=== PATIENT | male | born 1940 | race Caucasian/White ===

== ENCOUNTER 2018-06-25 17:03 | Emergency (ER) | payer SELFPAY ==
[~2018-06-25] VITALS: Ht 188 cm; Wt 90.0 kg
[~2018-06-25 17:03] MED LIST: SODIUM BICARB 8.4%, 50ML SYRINGE ONE
[2018-06-25] MEDS ORDERED: LIDOCAINE 2% 100MG/5ML SYRINGE ONE (17:05)
[2018-06-25] MEDS ORDERED: MAGNESIUM SULFATE 8 MEQ/2 ML ONE (17:05)
[2018-06-25] MEDS ORDERED: EPINEPHRINE SYRINGE 0.1 MG/ML, 10ML ONE (17:05)
== END 2018-06-25 21:30 | disposition expired ==
LOC: ED 21:24
DX: I46.2 Cardiac arrest due to underlying cardiac condition (principal)
CPT/HCPCS: 82962; 92950; 99285; J3475